=== PATIENT | female | born 1940 | race Caucasian/White ===

== ENCOUNTER 2020-02-16 06:55 | Outpatient (CLI) | payer MEDICARE, BC, OTHER ==
[2020-02-16 18:49] LABS: SARS-CoV-2 MS2 Positive; SARS-CoV-2 N Gene Negative; SARS-CoV-2 S Gene Negative; SARS-CoV-2 orf1ab Negative
== END 2020-02-16 06:56 | disposition home or self-care (01) ==
LOC: LABBT 06:55
PROVIDERS: ATTEND Ophthalmology Retina Specialist
DX: Z01.812 Encounter for preprocedural laboratory examination (principal); Z11.59 Encounter for screening for other viral diseases; H27.132 Posterior dislocation of lens, left eye
CPT/HCPCS: 87635; U0003

== ENCOUNTER 2020-02-19 06:15 | Day surgery (SDC) | payer MEDICARE, BC ==
[2020-02-16 10:36] VITALS: BMI 24.0
[2020-02-19] MEDS ORDERED: EPINEPHrine 0.3 MG in Ophthalmic Irrigation Solution 500 ML IRR SCH (06:40)
[2020-02-19] MEDS ORDERED: Cyclopentolate 1% Opth Drop 2 ML BOT ONE (07:16)
[2020-02-19] MEDS ORDERED: Phenylephrine 2.5% Ophth Soln 5 ML BOT ONE (07:16)
[2020-02-19] MEDS ORDERED: Fentanyl 100 MCG/2 ML VIAL ONE (08:00)
[2020-02-19] MEDS ORDERED: Midazolam HCl 2 mg/2 ml Vial ONE (08:00)
[2020-02-19] MEDS ORDERED: Lidocaine 1% PF 5 ML VIAL ONE (10:42)
[2020-02-19] MEDS ORDERED: Maxitrol 0.1% Opth Oint 3.5 GM TUBE ONE (10:42)
[2020-02-19] MEDS ORDERED: CEFAZOLIN 1 GM VIAL ONE (10:42)
[2020-02-19] MEDS ORDERED: Triamcinolone 40 MG/ML VIAL ONE (10:42)
[2020-02-19] MEDS ORDERED: Lidocaine 4% PF 5 ML AMP ONE (10:42)
[2020-02-19] MEDS ORDERED: Bupivacaine PF 0.75% SDV 10 ML ONE (10:42)
[2020-02-19] MEDS ORDERED: PROPOFOL 200 MG/20 ML VIAL ONE (10:42)
--- NOTE | 2020-02-20 10:09 | OP ---
DATE OF PROCEDURE: 02/19/2020 PREOPERATIVE DIAGNOSIS: Dislocated intraocular lens. POSTOPERATIVE DIAGNOSIS: Dislocated intraocular lens. PROCEDURES PERFORMED: Pars plana vitrectomy and intraocular lens repositioning, left eye. ANESTHESIA: Local with monitored anesthesia care. DESCRIPTION OF PROCEDURE: The patient was identified in preoperative holding area. Appropriate informed consent for the planned surgical procedure on the left eye had been obtained. The patient was transported to the operative suite. Appropriate cardiopulmonary monitoring was established. Local anesthesia obtained using retrobulbar modified Van Lint lid block using a 50:50 mixture of 4% lidocaine and 0.75% bupivacaine. The patient was prepped and draped in usual sterile manner for ophthalmic surgery in the left eye. Lid speculum was placed in the left eye. A 25-gauge trocar was placed in the conjunctiva and sclera superotemporally, inferotemporally, and supranasally. Infusion line was placed inferotemporally. Light pipe and vitreous cutter inserted to the eye. Residual vitreous was removed from the surface of the lens. Intra-ocular lens was repositioned anteriorly and sutured to the iris superiorly using 10-0 nylon sutures. The lens was noted to position well. The visual axis was clear. suture closed with 6-0 plain gut suture. Retrobulbar Kenalog sequential Ancef was placed. Antibiotic ointment was placed. Eye was patched and shielded. The patient was taken to postoperative recovery unit in good condition, having suffered no immediate perioperative complications. The patient was instructed to keep patch and shield on. Avoid lifting or bending. Followup appointment with Dr. Sotelo. Job ID: [id number]
== END 2020-02-19 10:43 | disposition home or self-care (01) ==
LOC: SDC 06:15
PROVIDERS: ATTEND Ophthalmology Retina Specialist
PROC: 08SK3ZZ Reposition Left Lens, Percutaneous Approach (ICD-10-PCS; principal; 2020-02-19)
PROC: 08T53ZZ Resection of Left Vitreous, Percutaneous Approach (ICD-10-PCS; 2020-02-19)
DX: T85.22XA Displacement of intraocular lens, initial encounter (principal)
CPT/HCPCS: J0171; J0690; J2001; J2250; J2704; J3010; J3301; J3490

== ENCOUNTER 2022-11-26 00:28 | Emergency (ER) | payer MEDICARE, BC ==
[2022-11-26 01:31] LABS: Hemoglobin 9.7 g/dL (12.0-16.0); Mean Corpuscular HGB CONC 35.2 g/dL (32.0-36.0); Mean Corpuscular Hemoglobin 37.3 pg (27.0-31.0); Platelet Count 170 10x3/uL (130-400); RBC Distribution Width 15.2 % (11.5-14.5); White Blood Cell (WBC) Count 4.2 10x3/uL (4.8-10.8)
[2022-11-26 01:52] LABS: ALT (SGPT) Less than 7 U/L (8-55); AST (SGOT) 10 U/L (5-34); Albumin 3.4 g/dL (3.4-4.8); Alkaline Phosphatase 157 U/L (40-110); Anion Gap 13 mmol/L (10-20); BUN (Urea Nitrogen) 16 mg/dL (9.8-20.1); Bilirubin, Total 0.9 mg/dL (0.2-1.2); Calc. Creatinine Clearance 0 mL/min (70-130); Calcium 8.8 mg/dL (7.8-10.44); Carbon Dioxide 24 mmol/L (23-31); Chloride 106 mmol/L (98-107); Estimated GFR 90; Globulin 2.6 g/dL (2.4-3.5); Glucose 94 mg/dL (83-110); Potassium 3.9 mmol/L (3.5-5.1); Sodium 139 mmol/L (136-145)
[2022-11-26 01:53] LABS: Anisocytosis SLIGHT = 6-15 cells (100X) (0-5/hpf); Eosinophils 3 % (0-10); Lymphocytes 19 % (21-51); MDiff Complete? YES; Monocytes 11 % (0-10); Neutrophil 66 % (42-75); Platelet Morphology Comment Appears Adequate; Polychromasia SLIGHT = 2-3 cells (100X) (0-2/hpf)
[2022-11-26] MEDS ORDERED: Activase 2 MG VIAL CATH SCH (02:00)
[2022-11-26] MEDS ORDERED: Sterile Water 10 ML VIAL IVP SCH (02:00)
== END 2022-11-26 04:50 ==
LOC: ERS 00:28
DX: T80.211A Bloodstream infection due to central venous catheter, initial encounter (principal); D72.819 Decreased white blood cell count, unspecified; I10 Essential (primary) hypertension; Z79.01 Long term (current) use of anticoagulants
CPT/HCPCS: 71045; 80053; 85025; J2997; 36415; 96374